=== PATIENT | female | born 1970 ===

== ENCOUNTER 2022-05-28 19:38 | Emergency (ER) | payer OTHER ==
[~2022-05-28] VITALS: Ht 147.3 cm; Wt 63.6 kg
[2022-05-28 19:43] VITALS: BP 145/66
== END 2022-05-29 01:59 | disposition left against medical advice (07) ==
LOC: EMS 19:38
DX: Z53.21 Procedure and treatment not carried out due to patient leaving prior to being seen by health care provider (principal)